=== PATIENT | female | born 1995 | race Caucasian/White ===

== ENCOUNTER 2021-09-20 11:10 | Inpatient (IN) | payer MEDICAID, OTHER ==
--- NOTE | 2021-09-20 14:28 | ED ---
Psych HPI - General Source: patient, RN notes reviewed Mode of arrival: ambulatory Limitations: no limitations <Yvon Sylvester - Last Filed: 09/21/21 06:02> - History of Present Illness MD Complaint: suicidal ideation, feels depressed -: unknown Associated Psychiatric Symptoms: racing thoughts Quality: constant Improves With: none Context: significant life stressor Associated Symptoms: denies other symptoms Treatments Prior to Arrival: none, placed on mental health hold <Kenneth Saez - Last Filed: 09/22/21 02:07> - General Chief Complaint: Psychiatric Symptoms Stated Complaint: mental health Time Seen by Provider: 09/20/21 14:04 - History of Present Illness Initial Comments: This a 26-year-old female presents emergency from chief complaint of psychiatric issues. Patient states she is depressed, suicidal, manic. Patient states that she is on multiple medications are not helping. She states that she needs medication adjustment. Patient states this week and use cocaine, states she drank the first time in 2 months. Patient states that she feels that she's been harm herself but she does not get help. Patient has no physical complaints. Denies chest pain, night sweats, fevers or chills no localized abdominal pain and chest pain. (Yvon Sylvester) - Related Data Home Medications Medication Instructions Recorded Confirmed Cariprazine HCl [Vraylar] 3 mg PO DAILY 09/20/21 09/20/21 Cyclobenzaprine [Flexeril] 10 mg PO DAILY PRN 09/20/21 09/20/21 FLUoxetine HCL [PROzac] 20 mg PO DAILY 09/20/21 09/20/21 Loratadine 10 mg PO DAILY PRN 09/20/21 09/20/21 clonazePAM [KlonoPIN] 2 mg PO DAILY PRN 09/20/21 09/20/21 traZODone HCL [Desyrel] 50 mg PO HS 09/20/21 09/20/21 Allergies Allergy/AdvReac Type Severity Reaction Status Date / Time buspirone [From BuSpar] AdvReac Rash/Hives Verified 09/20/21 15:52 Sulfa (Sulfonamide AdvReac Rash/Hives Verified 09/20/21 15:52 Antibiotics) tramadol AdvReac Rash/Hives Verified 09/20/21 15:52 Review of Systems ROS Other: All systems not noted in ROS Statement are negative. <Yvon Sylvester - Last Filed: 09/21/21 06:02> ROS Other: All systems not noted in ROS Statement are negative. <SeKenneth Angélica - Last Filed: 09/22/21 02:07> ROS Statement: Those systems with pertinent positive or pertinent negative responses have been documented in the HPI. Past Medical History Additional Past Medical History / Comment(s): chronic back pain Past Psychological History: Anxiety, Bipolar, Depression Smoking Status: Current every day smoker, Vaper Past Alcohol Use History: Occasional Past Drug Use History: Marijuana <Yvon Sylvester - Last Filed: 09/21/21 06:02> - Past Family History Mother Family Medical History: Hypertension <JoanKenneth mason - Last Filed: 09/22/21 02:07> General Exam Limitations: no limitations General appearance: alert, in no apparent distress Head exam: Present: atraumatic, normocephalic, normal inspection Eye exam: Present: normal appearance, PERRL, EOMI. Absent: scleral icterus, conjunctival injection, periorbital swelling ENT exam: Present: normal exam, normal oropharynx, mucous membranes moist Neck exam: Present: normal inspection, full ROM. Absent: tenderness, meningismus, lymphadenopathy Respiratory exam: Present: normal lung sounds bilaterally. Absent: respiratory distress, wheezes, rales, rhonchi, stridor Cardiovascular Exam: Present: regular rate, normal rhythm, normal heart sounds. Absent: systolic murmur, diastolic murmur, rubs, gallop, clicks GI/Abdominal exam: Present: soft, normal bowel sounds. Absent: distended, tenderness, guarding, rebound, rigid Neurological exam: Present: alert Psychiatric exam: Present: anxious Skin exam: Present: warm, dry, intact, normal color. Absent: rash <Yvon Sylvester - Last Filed: 09/21/21 06:02> General appearance: alert, in no apparent distress, anxious Head exam: Present: atraumatic, normocephalic, normal inspection Eye exam: Present: normal appearance, PERRL, EOMI. Absent: scleral icterus, conjunctival injection, periorbital swelling ENT exam: Present: normal exam, mucous membranes moist Neck exam: Present: normal inspection. Absent: tenderness, meningismus, lymphadenopathy Respiratory exam: Present: normal lung sounds bilaterally. Absent: respiratory distress, wheezes, rales, rhonchi, stridor Cardiovascular Exam: Present: regular rate, normal rhythm, normal heart sounds. Absent: systolic murmur, diastolic murmur, rubs, gallop, clicks GI/Abdominal exam: Present: soft, normal bowel sounds. Absent: distended, tenderness, guarding, rebound, rigid Extremities exam: Present: normal inspection, full ROM, normal capillary refill. Absent: tenderness, pedal edema, joint swelling, calf tenderness Back exam: Present: normal inspection Neurological exam: Present: alert, oriented X3, CN II-XII intact Psychiatric exam: Present: normal affect, normal mood Skin exam: Present: warm, dry, intact, normal color. Absent: rash <Kenneth Saez - Last Filed: 09/22/21 02:07> Course <Kenneth Saez - Last Filed: 09/22/21 02:07> Vital Signs 09/20/21 11:52 Temperature 98.0 F Pulse Rate 111 H Respiratory 20 Rate Blood Pressure 120/78 O2 Sat by Pulse 100 Oximetry - Reevaluation(s) Reevaluation #1: 09/21/21 Records reviewed Medical clear for psychiatric evaluation (Kenneth Saez) Medical Decision Making - Lab Data Result diagrams: 09/21/21 11:33 09/21/21 11:33 <Kenneth Saez - Last Filed: 09/22/21 02:07> - Medical Decision Making 26 female to the emergency department for evaluation of psychiatric illness. Patient will be admitted for psychiatric evaluation and treatment (Kenneth Saez) - Lab Data Lab Results 09/20/21 Range/Units 14:30 Urine Opiates Screen Not Detected (NotDetected) Ur Oxycodone Screen Not Detected (NotDetected) Urine Methadone Screen Not Detected (NotDetected) Ur Propoxyphene Screen Not Detected (NotDetected) Ur Barbiturates Screen Not Detected (NotDetected) U Tricyclic Antidepress Detected H (NotDetected) Ur Phencyclidine Scrn Not Detected (NotDetected) Ur Amphetamines Screen Detected H (NotDetected) U Methamphetamines Scrn Not Detected (NotDetected) U Benzodiazepines Scrn Detected H (NotDetected) Urine Cocaine Screen Detected H (NotDetected) U Marijuana (THC) Screen Detected H (NotDetected) Disposition <Yvon Sylvester - Last Filed: 09/21/21 06:02> Is patient prescribed a controlled substance at d/c from ED?: No <Kenneth Saez - Last Filed: 09/22/21 02:07> Clinical Impression: Depression, Bipolar disorder, Suicidal ideation Disposition: TRANSFER TO PSYCH HOSP/UNIT Condition: Fair
[2021-09-20 15:40] LABS: Amphetamine Screen,Urine Detected (NotDetected); Barbiturate Screen,Urine Not Detected (NotDetected); Benzodiazepines Screen,Urine Detected (NotDetected); Cocaine Screen,Urine Detected (NotDetected); Methadone Screen, Urine Not Detected (NotDetected); Opiate Screen,Urine Not Detected (NotDetected); Oxycodone Screen, Urine Not Detected (NotDetected); Phencyclidine Screen,Urine Not Detected (NotDetected); Tricyclic Antidepressant,Urine Detected (NotDetected); Urn Cannabinoid Scrn Detected (NotDetected)
[2021-09-20] MEDS ORDERED: IBUPROFEN 800 MG TAB PO STA (21:43)
[2021-09-20] MEDS ORDERED: ACETAMINOPHEN TAB 325 MG TAB PO PRN (23:15)
[2021-09-20] MEDS ORDERED: HALOPERIDOL LACTATE 5 MG/ML 1 ML VIAL IM PRN (23:15)
[2021-09-20] MEDS ORDERED: MAG HYDROX/AL HYDROX/SIMETH 30 ML CUP PO PRN (23:15)
[2021-09-20] MEDS ORDERED: MAGNESIUM HYDROXIDE 2,400 MG/10 ML CUP PO PRN (23:15)
[2021-09-20] MEDS ORDERED: LORazepam 1 MG TAB PO PRN (23:15)
[2021-09-20] MEDS ORDERED: haloperidoL 5 MG TAB PO PRN (23:17)
[2021-09-20] MEDS ORDERED: QUEtiapine 50 MG TAB PO PRN (23:17)
[2021-09-20] MEDS ORDERED: LORazepam 2 MG/ML INJ IM PRN (23:17)
[2021-09-20] MEDS: CYCLOBENZAPRINE 10 MG TAB PO PRN (23:35)
--- NOTE | 2021-09-21 04:10 | P.PN ---
Progress Note - Text Progress Note Date: 09/21/21 Attempted to see the patient in the MHU. Patient asleep and refused to be seen or evaluated.
[2021-09-21] MEDS: CYCLOBENZAPRINE 10 MG TAB PO PRN (08:35)
[2021-09-21] MEDS: NICOTINE 14MG/24HR PATCH TRANSDERM SCH (08:35)
[2021-09-21] MEDS ORDERED: NON FORMULARY DRUG (Cariprazine Hcl [Vraylar] 3 MG Capsule) PO SCH (09:00)
[2021-09-21] MEDS ORDERED: Cariprazine Hcl [Vraylar] 3 MG Capsule PO SCH (09:00)
[2021-09-21] MEDS ORDERED: FLUoxetine HCL 20 MG CAP PO SCH (09:00)
[2021-09-21] MEDS ORDERED: ESCITALOPRAM 10 MG TAB PO STA (10:17)
[2021-09-21] MEDS ORDERED: cloNIDine HCL 0.1 MG TAB PO STA (10:17)
[2021-09-21 12:43] LABS: ALT 16 U/L (4-34); AST 20 U/L (14-36); African American GFR (CKD) >90 (>60 ml/min/1.73 sqM); Albumin 4.3 g/dL (3.5-5.0); Alkaline Phosphatase 86 U/L (38-126); Anion Gap 8 mmol/L; Basophils # (A) 0.1 k/uL (0-0.2); Basophils % (A) 1 %; Blood Urea Nitrogen 14 mg/dL (7-17); Calcium 9.3 mg/dL (8.4-10.2); Carbon Dioxide 27 mmol/L (22-30); Chloride 101 mmol/L (98-107); Eosinophils # (A) 0.2 k/uL (0-0.7); Eosinophils % (A) 1 %; Glucose 89 mg/dL (74-99); HCT 39.9 % (34.0-46.0); HGB 12.9 gm/dL (11.4-16.0); Lymphocytes # (A) 0.9 k/uL (1.0-4.8); Lymphocytes % (A) 7 %; MCH 31.6 pg (25.0-35.0); MCHC 32.5 g/dL (31.0-37.0); MCV 97.4 fL (80.0-100.0); Mean Platelet Volume 8.1; Monocytes # (A) 0.8 k/uL (0-1.0); Monocytes % (A) 6 %; Neutrophils # (A) 11.8 k/uL (1.3-7.7); Neutrophils % (A) 85 %; Non-African American GFR(CKD) >90 (>60 ml/min/1.73 sqM); Platelet Count 328 k/uL (150-450); Potassium 4.6 mmol/L (3.5-5.1); RBC 4.09 m/uL (3.80-5.40); RDW 12.2 % (11.5-15.5); Sodium 136 mmol/L (137-145); Total Bilirubin 0.5 mg/dL (0.2-1.3); Total Protein 6.9 g/dL (6.3-8.2); WBC 13.9 k/uL (3.8-10.6)
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
[2021-09-21] MEDS: clonazePAM 1 MG TAB PO PRN ×2 (15:09→21:04)
[2021-09-21] MEDS: LORATADINE 10 MG TAB PO PRN (16:10)
[2021-09-21] MEDS: IBUPROFEN 200 MG TAB PO PRN ×2 (17:12→21:03)
[2021-09-21] MEDS: BENZOCAINE/MENTHOL LOZENG 1 EACH LOZENGE MUCOUS MEM PRN ×2 (17:12→21:02)
[2021-09-21 18:19] LABS: Chol/HDL Ratio 2.45 Ratio; LDL Cholesterol,Calculated 66.4 mg/dL (0.0-131.0); VLDL Calculation 18.22 mg/dL (5.00-40.00)
[2021-09-21] MEDS: cloNIDine HCL 0.1 MG TAB PO SCH (20:18)
[2021-09-21] MEDS ORDERED: QUEtiapine 100 MG TAB PO SCH (21:00)
--- NOTE | 2021-09-22 00:36 | P.CONS ---
History of Present Illness - Reason for Consult Consult date: 09/21/21 - History of Present Illness The patient is a 26-year-old female with a PMH of polysubstance abuse who presented to the emergency room with complaints of depression and suicidal ideation. She was admitted to the mental health unit where she was seen and evaluated with the mental health unit RN Johnathan clements. The patient reports that she recently partied over the weekend, at which time she took multiple illicit substances including cocaine and marijuana. She reported feeling somewhat down about her life since then. She also reported a sore throat over the past few days. She reports a history of multiple strep infections requiring antibiotics. Denied cough, odynophagia, fever, chills, chest pain. Also denied experiencing abdominal pain, nausea, vomiting, diarrhea. Laboratory evaluation was remarkable for WBC count of 13.9. She reports smoking 5 cigarettes daily. Review of systems: Pertinent positives and negatives as discussed in HPI, a complete review of systems was performed and all other systems are negative. Physical examination: General: non toxic, no distress, appears older than stated age, normal weight Derm: no unusual rashes/lesions no unusual ecchymoses, warm, dry Head: atraumatic, normocephalic, symmetric Eyes: EOMI, no lid lag, anicteric sclera, pupils equal round reactive to light ENT: Nose and ears atraumatic, no thrush, no pharyngeal erythema Neck: No thyromegaly, no cervical lymphadenopathy, trachea midline, supple Mouth: no lip lesion, mucus membranes moist Cardiovascular: S1S2 reg, no murmur, positive posterior tibial pulse bilateral, no edema, capillary refill less than 2 seconds Lungs: CTA bilateral, no rhonchi, no rales , no accessory muscle use Abdominal: soft, nontender to palpation, no guarding, no appreciable organomegaly, normal bowel sounds Ext: no gross muscle atrophy, muscle strength 5 out of 5 in all 4 extremities grossly, no contractures, Neuro: CN II-XI grossly intact, light touch intact all 4 extremities, finger to nose within normal limits, Psych: Alert, oriented, appropriate affect Assessment/plan Sore throat -Obtain rapid strep test Polysubstance abuse -Advised on importance of cessation Depression and suicidal ideation -As per psychiatry Thank you for allowing us to participate in the care of this patient. We will follow peripherally. Do not hesitate to contact us with questions. Someone can be reached from the [facility] hospitalist group at all hours of the day at [phone]. Past Medical History Additional Past Medical History / Comment(s): chronic back pain Past Psychological History: Anxiety, Bipolar, Depression Smoking Status: Current every day smoker, Vaper Past Alcohol Use History: Occasional Past Drug Use History: Marijuana - Past Family History Mother Family Medical History: Hypertension Medications and Allergies Home Medications Medication Instructions Recorded Confirmed Type Cariprazine HCl [Vraylar] 3 mg PO DAILY 09/20/21 09/20/21 History Cyclobenzaprine [Flexeril] 10 mg PO DAILY PRN 09/20/21 09/20/21 History FLUoxetine HCL [PROzac] 20 mg PO DAILY 09/20/21 09/20/21 History Loratadine 10 mg PO DAILY PRN 09/20/21 09/20/21 History clonazePAM [KlonoPIN] 2 mg PO DAILY PRN 09/20/21 09/20/21 History traZODone HCL [Desyrel] 50 mg PO HS 09/20/21 09/20/21 History Allergies Allergy/AdvReac Type Severity Reaction Status Date / Time buspirone [From BuSpar] AdvReac Rash/Hives Verified 09/20/21 15:52 Sulfa (Sulfonamide AdvReac Rash/Hives Verified 09/20/21 15:52 Antibiotics) tramadol AdvReac Rash/Hives Verified 09/20/21 15:52 Physical Exam Vitals: Vital Signs Pulse BP 09/21/21 08:38 110 H 128/78 Results CBC & Chem 7: 09/21/21 11:33 09/21/21 11:33 Labs: Abnormal Lab Results - Last 24 Hours (Table) 09/21/21 09/21/21 Range/Units 11:33 11:33 WBC 13.9 H (3.8-10.6) k/uL Neutrophils # 11.8 H (1.3-7.7) k/uL Lymphocytes # 0.9 L (1.0-4.8) k/uL Sodium 136 L (137-145) mmol/L
[2021-09-22 07:10] VITALS: RESP 16
[2021-09-22] MEDS: cloNIDine HCL 0.1 MG TAB PO SCH ×2 (07:59→20:46)
[2021-09-22] MEDS: ESCITALOPRAM 20 MG TAB PO SCH (07:59)
[2021-09-22] MEDS: NICOTINE 14MG/24HR PATCH TRANSDERM SCH (07:59)
[2021-09-22] MEDS: clonazePAM 1 MG TAB PO PRN ×3 (08:01→22:18)
[2021-09-22] MEDS: CYCLOBENZAPRINE 10 MG TAB PO PRN (08:01)
[2021-09-22] MEDS: LORATADINE 10 MG TAB PO PRN (08:01)
[2021-09-22] MEDS: IBUPROFEN 200 MG TAB PO PRN ×3 (08:01→22:05)
[2021-09-22] MEDS: BENZOCAINE/MENTHOL LOZENG 1 EACH LOZENGE MUCOUS MEM PRN ×3 (08:34→20:45)
[2021-09-22] MEDS ORDERED: ESCITALOPRAM 10 MG TAB PO SCH (09:00)
[2021-09-22] MEDS ORDERED: FLUoxetine HCL 20 MG CAP PO SCH (09:00)
--- NOTE | 2021-09-22 11:11 | P.PN ---
Progress Note - Text Progress Note Date: 09/22/21 Interval History: Patient was seen wandering the hallways and was directable and agreeable to speak with writer producer in the office. Currently, patient is reporting that she is feeling significantly better. She is currently denying any suicidal or homicidal ideation currently not reporting any auditory or visual hallucinations. Patient denies any paranoia or other delusions at this time. The patient reports improved sleep and improved appetite. The patient has been adherent with her medications and is not reporting any significant side effects. The patient continues to report that she feels like her mood continues needs to be stabilized and is wishing for further titration of her mood stabilization medications. Despite this, patient does report significant improvement and is anticipated for discharge tomorrow Mental Status Exam: General Appearance: Patient appears to be stated age is alert, directable, and cooperative. Patient has dyed pink hair and multiple tattoos and piercings. Behavior: Patient is calmly seated without any agitated behavior. Speech: Patient's speech is fluent and nonpressured. Mood/Affect: Mood is improving mildly, affect is congruent and constricted. Suicidality/Homicidality: Patient denies having any suicidal or homicidal eric ation intent or plan. Perceptions: Patient denies any visual hallucinations and denies any auditory hallucinations Though content/process: There is no evidence of any delusional thought content and thought process is linear and goal-directed. Memory and concentration: AOX3, grossly intact for the purposes of this session Judgment and insight: Improving mildly Vital Signs Temp 98.1 F 09/22/21 06:50 Pulse 107 H 09/22/21 07:59 Resp 16 09/22/21 06:50 BP 119/71 09/22/21 07:59 Pulse Ox 98 09/20/21 23:37 FiO2 Laboratory Results - Last 24 Hours 09/21/21 09/21/21 09/21/21 11:33 11:33 11:33 WBC 13.9 H RBC 4.09 Hgb 12.9 Hct 39.9 MCV 97.4 MCH 31.6 MCHC 32.5 RDW 12.2 Plt Count 328 MPV 8.1 Neutrophils % 85 Lymphocytes % 7 Monocytes % 6 Eosinophils % 1 Basophils % 1 Neutrophils # 11.8 H Lymphocytes # 0.9 L Monocytes # 0.8 Eosinophils # 0.2 Basophils # 0.1 Sodium 136 L Potassium 4.6 Chloride 101 Carbon Dioxide 27 Anion Gap 8 BUN 14 Creatinine 0.75 Est GFR (CKD-EPI)AfAm >90 Est GFR (CKD-EPI)NonAf >[address] Glu mg/dL 105 Hemoglobin A1c 5.3 Calcium 9.3 Total Bilirubin 0.5 AST 20 ALT 16 Alkaline Phosphatase 86 Total Protein 6.9 Albumin 4.3 Triglycerides 91.10 Cholesterol 143.00 LDL Cholesterol, Calc 66.4 VLDL Cholesterol, Calc 18.22 HDL Cholesterol 58.40 Cholesterol/HDL Ratio 2.45 TSH 1.530 Group A Strep Rapid 09/21/21 22:09 WBC RBC Hgb Hct MCV MCH MCHC RDW Plt Count MPV Neutrophils % Lymphocytes % Monocytes % Eosinophils % Basophils % Neutrophils # Lymphocytes # Monocytes # Eosinophils # Basophils # Sodium Potassium Chloride Carbon Dioxide Anion Gap BUN Creatinine Est GFR (CKD-EPI)AfAm Est GFR (CKD-EPI)NonAf Glucose Estimated Ave Glu mg/dL Hemoglobin A1c Calcium Total Bilirubin AST ALT Alkaline Phosphatase Total Protein Albumin Triglycerides Cholesterol LDL Cholesterol, Calc VLDL Cholesterol, Calc HDL Cholesterol Cholesterol/HDL Ratio TSH Group A Strep Rapid Negative Assessment Major depressive disorder, recurrent, severe PTSD Borderline personality disorder Cocaine use disorder Cannabis use disorder Tobacco use disorder Alcohol use disorder, binge type Plan: -Patient continues to meet criteria for inpatient psychiatric admission for symptom stabilization and safety. Patient has signed adult voluntary form and medication consent and was placed in patient's chart. -Medications: Increase Lexapro to 20 mg by mouth daily for depression/anxiety Increase Seroquel to 150 mg by mouth at bedtime for mood stabilization/augmentation Continue Catapres 0.1 mg by mouth twice a day for PTSD -When necessary Klonopin and Haldol for agitation/aggression. -NRT - nicotine patch -SW on board for discharge planning. Encouraged the patient to participate in milieu.
[2021-09-22] MEDS ORDERED: QUEtiapine 50 MG TAB PO SCH (21:00)
[2021-09-23 06:51] VITALS: TEMP 97.9
[2021-09-23 08:27] VITALS: BP 122/71; PULSE 96
[2021-09-23] MEDS: NICOTINE 14MG/24HR PATCH TRANSDERM SCH (08:30)
[2021-09-23] MEDS: BENZOCAINE/MENTHOL LOZENG 1 EACH LOZENGE MUCOUS MEM PRN ×2 (08:30→12:22)
[2021-09-23] MEDS: ESCITALOPRAM 20 MG TAB PO SCH (08:30)
[2021-09-23] MEDS: clonazePAM 1 MG TAB PO PRN (08:30)
[2021-09-23] MEDS: cloNIDine HCL 0.1 MG TAB PO SCH (08:30)
[2021-09-23] MEDS: IBUPROFEN 200 MG TAB PO PRN ×2 (08:30→12:22)
[2021-09-23] MEDS: LORATADINE 10 MG TAB PO PRN (08:30)
[2021-09-23] MEDS: CYCLOBENZAPRINE 10 MG TAB PO PRN (08:30)
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
== END 2021-09-23 12:28 | disposition home or self-care (01) | DRG 885 ==
LOC: EC 11:10 → 3MHU 21:38
PROVIDERS: ADMIT Psychiatry & Neurology Psychiatry; ATTEND Psychiatry & Neurology Psychiatry
DX: F31.4 Bipolar disorder, current episode depressed, severe, without psychotic features (principal); R45.851 Suicidal ideations; F12.20 Cannabis dependence, uncomplicated; F14.10 Cocaine abuse, uncomplicated; F60.3 Borderline personality disorder; Z20.822 Contact with and (suspected) exposure to COVID-19; F10.10 Alcohol abuse, uncomplicated; F44.81 Dissociative identity disorder; F41.0 Panic disorder [episodic paroxysmal anxiety]; F43.10 Post-traumatic stress disorder, unspecified; G89.29 Other chronic pain; M54.9 Dorsalgia, unspecified; J02.9 Acute pharyngitis, unspecified; F17.210 Nicotine dependence, cigarettes, uncomplicated; F17.290 Nicotine dependence, other tobacco product, uncomplicated; Z71.6 Tobacco abuse counseling; Z79.899 Other long term (current) drug therapy; Z91.52 Personal history of nonsuicidal self-harm; Z71.51 Drug abuse counseling and surveillance of drug abuser; Z88.5 Allergy status to narcotic agent; Z88.2 Allergy status to sulfonamides; Z88.8 Allergy status to other drugs, medicaments and biological substances; Z82.49 Family history of ischemic heart disease and other diseases of the circulatory system; Z81.4 Family history of other substance abuse and dependence; Z81.8 Family history of other mental and behavioral disorders
CPT/HCPCS: 80053; 80061; 80306; 82075; 83036; 84443; 85025; 87081; 87430; 87635; 99285